=== PATIENT | female | born 1980 | race Caucasian/White ===

== ENCOUNTER 2021-07-07 11:14 | Day surgery (SDC) | payer SELFPAY ==
[2021-07-07] MEDS ORDERED: Sodium Chloride 0.9% 10 ML Syringe FLUSH PRN (11:29)
[2021-07-07] MEDS ORDERED: Ketorolac 30 MG/ML SDV IVPUSH STA (11:31)
[2021-07-07] MEDS ORDERED: Ondansetron 4 MG/2 ML SDV IVPUSH STA (11:31)
[2021-07-07] MEDS ORDERED: Morphine 2 MG/ML SYRINGE IVPUSH STA (11:31)
[2021-07-07] MEDS ORDERED: Sodium Chloride 0.9% 1,000 ML IV SCH ×2 (11:45→13:15)
[2021-07-07] MEDS ORDERED: Iopamidol 755 Mg/ML 100 ML Bottle IV ONE (11:53)
[2021-07-07] MEDS ORDERED: metroNIDAZOLE/Normal Saline 500 MG in Premix Bag 1 BAG IV SCH (13:00)
[2021-07-07] MEDS ORDERED: Rocuronium 100 MG/10 ML MDV IV ONE (13:10)
[2021-07-07] MEDS ORDERED: Dexamethasone 4 MG/ML 5 ML MDV IVPUSH ONE (13:10)
[2021-07-07] MEDS ORDERED: Midazolam 1 MG/ML 2 ML SDV IV ONE (13:10)
[2021-07-07] MEDS ORDERED: Glycopyrrolate 0.2 MG/ML 5 ML MDV IV ONE (13:10)
[2021-07-07] MEDS ORDERED: Labetalol 100 MG/20 ML MDV IV ONE (13:10)
[2021-07-07] MEDS ORDERED: fentaNYL 100 MCG/2 ML SDV IV ONE (13:10)
[2021-07-07] MEDS ORDERED: Neostigmine Methylsulfate 10 MG/10 ML MDV IVPUSH ONE (13:10)
[2021-07-07] MEDS ORDERED: Propofol 200 MG/20 ML SDV IV ONE (13:10)
[2021-07-07] MEDS ORDERED: Ondansetron 4 MG/2 ML SDV IVPUSH ONE (13:10)
[2021-07-07] MEDS ORDERED: Ciprofloxacin in D5W 400 MG in Premix Bag 1 BAG IV SCH ×2 (14:00)
[2021-07-07] MEDS ORDERED: Bupivacaine 0.5%/EPINEPHrine 1:200,000 10 ML SDV INJECT ONE ×2 (15:05)
[2021-07-07] MEDS ORDERED: Morphine 2 MG/ML SYRINGE IVPUSH PRN (16:22)
[2021-07-07] MEDS ORDERED: Ondansetron 4 MG/2 ML SDV IVPUSH PRN (16:22)
[2021-07-07] MEDS ORDERED: Acetaminophen/HYDROcodone 325-5 MG Tab PO PRN (16:22)
[2021-07-07] MEDS: Lactated Ringers 1,000 ML IV SCH (17:19)
[2021-07-07] MEDS: Acetaminophen/HYDROcodone 325-5 MG Tab PO PRN (20:06)
[2021-07-07] MEDS: metroNIDAZOLE/Normal Saline 500 MG in Premix Bag 1 BAG IV SCH (21:25)
[2021-07-08] MEDS: Lactated Ringers 1,000 ML IV SCH (01:49)
[2021-07-08] MEDS ORDERED: Ciprofloxacin in D5W 400 MG in Premix Bag 1 BAG IV SCH ×2 (02:00)
[2021-07-08] MEDS: Acetaminophen/HYDROcodone 325-5 MG Tab PO PRN ×2 (02:02→06:18)
[2021-07-08] MEDS: metroNIDAZOLE/Normal Saline 500 MG in Premix Bag 1 BAG IV SCH (05:28)
[2021-07-08 09:30] VITALS: BP 102/53; PULSE 57
== END 2021-07-08 09:05 | disposition home or self-care (01) ==
LOC: FB.ED 11:14 → FB.SDS 13:09 → FB.MS 16:43 → FB.SDS 07-08 09:05
PROVIDERS: ATTEND Surgery
DX: K35.80 Unspecified acute appendicitis (principal); Z88.5 Allergy status to narcotic agent; Z98.890 Other specified postprocedural states; Z01.812 Encounter for preprocedural laboratory examination; Z20.822 Contact with and (suspected) exposure to COVID-19
CPT/HCPCS: 00840-QZ; 36415; 74177; 80053; 82150; 83690; 85025; 88304; 94150; 96365; 96375; 99284; 99285-25; A9270-GY; J0744; J1100; J1885; J2250; J2270; J2405; J2704; J2710; J3010; J3490; J7030; J7120; Q9967; U0002